=== PATIENT | female | born 1970 | race American Indian/Alaskan Native ===

== ENCOUNTER 2021-11-11 16:36 | Emergency (ER) | payer OTHER ==
[2021-11-11 16:38] VITALS: BP 155/81
--- NOTE | 2021-11-11 17:00 | Emergency Department Report ---
ED Lower Extremity HPI - General Chief Complaint: Extremity Injury, Lower Stated Complaint: L ANKLE INJURY Time Seen by Provider: 11/11/21 16:59 Source: patient, EMS Mode of arrival: Stretcher Limitations: No Limitations - Related Data Previous Rx's Medication Instructions Recorded Last Taken Type Ibuprofen [Motrin] 800 mg PO Q8HR PRN #30 tablet 11/11/21 Unknown Rx Allergies Allergy/AdvReac Type Severity Reaction Status Date / Time morphine AdvReac Unknown Verified 11/11/21 16:39 Penicillins AdvReac Unknown Verified 11/11/21 16:39 shellfish derived AdvReac Unknown Verified 11/11/21 16:39 ED Review of Systems ROS: Stated complaint: L ANKLE INJURY Other details as noted in HPI Comment: All other systems reviewed and negative ED Past Medical Hx - Past Medical History Previous Medical History?: Yes Additional medical history: Morbid obesity - Surgical History Past Surgical History?: No - Family History Family history: no significant - Social History Smoking Status: Never Smoker Substance Use Type: None - Medications Home Medications: Home Medications Medication Instructions Recorded Confirmed Last Taken Type Ibuprofen [Motrin] 800 mg PO Q8HR PRN #30 tablet 11/11/21 Unknown Rx ED Physical Exam - General Limitations: No Limitations General appearance: alert, in no apparent distress - Head Head exam: Present: atraumatic, normocephalic - Eye Eye exam: Present: normal appearance - ENT ENT exam: Present: mucous membranes moist - Neck Neck exam: Present: normal inspection - Respiratory Respiratory exam: Present: normal lung sounds bilaterally. Absent: respiratory distress - Cardiovascular Cardiovascular Exam: Present: regular rate, normal rhythm. Absent: systolic murmur, diastolic murmur, rubs, gallop - GI/Abdominal GI/Abdominal exam: Present: soft, normal bowel sounds - Extremities Exam Extremities exam: Present: normal inspection - Back Exam Back exam: Present: normal inspection - Neurological Exam Neurological exam: Present: alert, oriented X3 - Psychiatric Psychiatric exam: Present: normal affect, normal mood - Skin Skin exam: Present: warm, dry, intact, normal color. Absent: rash ED Course Vital Signs 11/11/21 16:37 Pulse Rate 74 Blood Pressure 155/81 [Left] O2 Sat by Pulse 98 Oximetry ED Lower Extremity MDM - Radiology Data Radiology results: report reviewed, image reviewed no fx - Medical Decision Making Vital Signs 11/11/21 16:37 Pulse Rate 74 Blood Pressure 155/81 [Left] O2 Sat by Pulse 98 Oximetry - Differential Diagnosis Rule out fracture Critical care attestation.: If time is entered above; I have spent that time in minutes in the direct care of this critically ill patient, excluding procedure time. ED Disposition Clinical Impression: Fall, Ankle pain, Knee pain Disposition: 01 HOME / SELF CARE / HOMELESS Is pt being admited?: No Does the pt Need Aspirin: No Condition: Stable Instructions: Joint Pain, [id number] Additional Instructions: rest ice packs elevate Motrin or Tylenol for mild pain Follow-up with PCP or orthopedics if pain persist Have given you referral below Referrals: DOMINIC DIAS MD [Staff Physician] - 3-5 Days ADA BOOTH MD [Staff Physician] - 3-5 Days Forms: Work/School Release Form(ED) Time of Disposition: 17:18
[2021-11-11] MEDS ORDERED: HYDROcodone/ACETAMINOPHEN 10-325MG TAB PO ONE (17:18)
--- NOTE | 2021-11-11 17:22 | XRay Report ---
LEFT KNEE 3 VIEWS INDICATION / CLINICAL INFORMATION: Fall with left knee pain. COMPARISON: None available. FINDINGS: BONES / JOINT(S): There are mild tricompartmental degenerative changes. There is no evidence of acute fracture, subluxation or joint effusion. SOFT TISSUES: No significant abnormality. ADDITIONAL FINDINGS: None. IMPRESSION: No acute findings. Signer Name: Jaya Barrios MD Signed: 11/11/2021 5:18 PM Workstation Name: [email or web address]
--- NOTE | 2021-11-11 17:24 | XRay Report ---
LEFT ANKLE 3 VIEWS INDICATION / CLINICAL INFORMATION: Fall with left ankle pain. COMPARISON: None available. FINDINGS: BONES / JOINT(S): There is moderate spurring at the insertion of the Achilles tendon on the calcaneus . I see no evidence of acute fracture or subluxation. SOFT TISSUES: There is mild generalized soft tissue swelling involving the ankle. ADDITIONAL FINDINGS: None. IMPRESSION: No acute osseous abnormality. Signer Name: Jaya Barrios MD Signed: 11/11/2021 5:20 PM Workstation Name: [email or web address]
== END 2021-11-11 19:48 | disposition home or self-care (01) ==
LOC: ED 16:36
DX: M25.572 Pain in left ankle and joints of left foot (principal); M25.562 Pain in left knee; Z88.0 Allergy status to penicillin; Z91.013 Allergy to seafood; Z91.09 Other allergy status, other than to drugs and biological substances; W19.XXXA Unspecified fall, initial encounter; Y93.89 Activity, other specified; Y92.89 Other specified places as the place of occurrence of the external cause; Y99.8 Other external cause status
CPT/HCPCS: 99283